=== PATIENT | male | born 1970 | race Caucasian/White ===

== ENCOUNTER → 2019-02-16 | Day surgery (SDC) | payer BC ==
[~2019-02-16] MED LIST: ALPR0.5T6 PO; ATORVASTATIN CA80 MG PO; IV RINGERS,LACTATED 1000ML 1,000 ML IV SCH; LIDOCAINE 1% PF 2 ML VIAL. ID PRN; LIDOCAINE 2% PF 5 ML VIAL. ONE; LORA10TA3 PO; LOSA1TAB25 PO; MELO15TA23 PO; MIDAZOLAM HCL/PF 2 MG/2 ML VIAL. IV PRN; PANT20TA2 PO; PROPOFOL 80 ML IV ONE; SERT50TA PO; fentaNYL PF VIAL 100 MCG/2 ML VIAL IV PRN
[2019-02-16 11:45] VITALS: BP 128/76
--- NOTE | 2019-02-17 15:07 | PATHOLOGY ---
[facility] Accession Number: [id number] . 01 Material submitted: . PART A: small bowel - SMALL BOWEL BIOPSY PART B: stomach - GASTRIC ANTRUM PART C: esophagus - DISTAL ESOPHAGUS. Modifiers: distal PART D: esophagus - MID ESOPHAGUS. Modifiers: mid PART E: colon - SIGMOID POLYP. Modifiers: sigmoid . 01 Clinical history: . GERD/screening . 02 Diagnosis: A. Small intestinal mucosa, "small bowel biopsy": - No obvious diagnostic changes. - There is no evidence of acute cryptitis, granulomas, adenomatous change, sprue-like changes or malignancy. . B. Gastric, "gastric antrum biopsy": - Mild chronic reactive gastropathy. - The immunoperoxidase stains for Helicobacter pylori is negative. . C. 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 - There is no evidence of dysplasia or malignancy. . D. Squamous mucosa, "mid esophagus biopsy": - Reflux esophagitis with reactive squamous mucosa. - There is no evidence of goblet cell metaplasia, dysplasia or malignancy. . E. Colonic mucosa, "sigmoid polyp biopsy": - Fragments of hyperplastic polyps. - There is no evidence of adenomatous change, high grade dysplasia or malignancy. . ([facility]; 02/17/2019) [facility]/02/17/2019 . 02 Comment: This case is also reviewed by Dr. Karen Cedeno. . ([facility]; 02/17/2019) . 02 Electronically signed: . Alexandro Morales MD, Pathologist NPI- [id number] . 01 Gross description: . A. The specimen is received in formalin, labeled "Justice, Darvin, small bowel" and consists of 3 fragments of pink-liu tissue measuring between 0.3 x 0.2 cm and 0.5 x 0.2 cm. They are entirely submitted in A1. . B. The specimen is received in formalin, labeled "Jayme, Darvin, gastric antrum" and consists of 2 fragments of pink-liu tissue measuring 0.4 x 0.3 x 0.2 cm and 0.2 x 0.2 x 0.1 cm. They are entirely submitted in B1. . C. The specimen is received in formalin, labeled "Jayme, Darvin, distal esophagus" and consists of multiple fragments of soft liu tissue measuring 1.5 x 0.5 x 0.2 cm in aggregate which are entirely submitted in C1. . D. The specimen is received in formalin, labeled "Jayme, Darvin, midesophagus" and consists of 3 translucent fragments of pink-vargas tissue measuring between 0.2 x 0.1 cm and 0.3 x 0.3 cm which are entirely submitted in D1. . E. The specimen is received in formalin, labeled "Jayme, Darvin, sigmoid polyp" and consists of 4 fragments of pink-liu tissue measuring between 0.3 x 0.2 cm and 0.3 x 0.3 x 0.2 cm which are entirely submitted in E1. ([facility]; 02/16/2019) SYU/SYU . 02 Pathologist provided ICD-10: K31.9, K21.0, K22.70, K63.5 . 02 CPT . 591439, 427004, 294120, 544779, [id number], [id number] Specimen Comment: A courtesy copy of this report has been sent to Specimen Comment: [phone], . Specimen Comment: Report sent to / DR ELIZABETH Performed at: 01 [facility] [address], [place], [place] [id number] MD Partha Chandler MD Phone: [phone] Performed at: 02 [facility] [address] [place], [place] [id number] MD Dany June MD Phone: [phone]
== END ==
LOC: SURG 09:14
PROVIDERS: ATTEND Internal Medicine Gastroenterology
DX: K63.5 Polyp of colon (principal); K21.0 Gastro-esophageal reflux disease with esophagitis; K29.50 Unspecified chronic gastritis without bleeding; K57.30 Diverticulosis of large intestine without perforation or abscess without bleeding; K44.9 Diaphragmatic hernia without obstruction or gangrene; K64.1 Second degree hemorrhoids; K64.4 Residual hemorrhoidal skin tags; F41.9 Anxiety disorder, unspecified; F15.90 Other stimulant use, unspecified, uncomplicated; F17.210 Nicotine dependence, cigarettes, uncomplicated; F32.9 Major depressive disorder, single episode, unspecified; E78.00 Pure hypercholesterolemia, unspecified; Z72.89 Other problems related to lifestyle
CPT/HCPCS: 43239; 43450; 45380; J2001; J2704; 88305; 88342